=== PATIENT | female | born 2000 | race Caucasian/White ===

== ENCOUNTER → 2019-03-25 12:18 | Outpatient (BNVA) | payer OTHER, SELFPAY | PROVIDERS: Visit Provider Nurse Practitioner | DX: N39.0 Urinary tract infection, site not specified (principal); R10.9 Unspecified abdominal pain | CPT/HCPCS: 81003; 87086 ==

== ENCOUNTER → 2019-03-31 11:00 | Outpatient (BNVA) | payer OTHER, SELFPAY | PROVIDERS: Visit Provider Nurse Practitioner | DX: N39.0 Urinary tract infection, site not specified (principal); R31.9 Hematuria, unspecified; J11.1 Influenza due to unidentified influenza virus with other respiratory manifestations | CPT/HCPCS: 81001; 87804 ==

== ENCOUNTER 2019-07-28 16:45 | Outpatient (CLI) | payer OTHER, SELFPAY ==
--- NOTE | 2019-07-28 17:00 | CTR_ITS ---
PROCEDURE INFORMATION: Exam: CT Abdomen And Pelvis With Contrast Exam date and time: 07/28/2019 5:17 PM Age: 18 years old Clinical indication: Abdominal pain; Additional info: Abd pain TECHNIQUE: Imaging protocol: Computed tomography of the abdomen and pelvis with intravenous contrast. Radiation optimization: All CT scans at this facility use at least one of these dose optimization techniques: automated exposure control; mA and/or kV adjustment per patient size (includes targeted exams where dose is matched to clinical indication); or iterative reconstruction. Contrast material: OMNI 300; Contrast volume: 95 ml; Contrast route: INTRAVENOUS (IV) Other contrast: Oral, OMNI 300, 25; COMPARISON: No relevant prior studies available. FINDINGS: Liver, spleen, pancreas, kidneys, and adrenal glands appear unremarkable. Urinary bladder is nearly collapsed. Appendix is retrocecal. Appendix otherwise appears grossly unremarkable. Bowel loops do not appear significantly dilated. No large amount of free fluid demonstrated. Abdominal aorta does not appear dilated. Visualized lung bases demonstrate no significant opacification. CT/CT abdomen pelvis w con* [id number] IMPRESSION: No acute process is demonstrated. Total DLP (mGy-cm): 1211.91 Radiation Dose CTDIVOL = (mGy): DLP = 1211.91 (mGy-cm)
[2019-07-28] MEDS: iohexol 300 mg/mL 50 mL Btl PO (17:18)
[2019-07-28 17:33] LABS: Basophils % 0.3 %; Eosinophils # 0.3 10^3/uL (0.0-0.8); Eosinophils % 3.4 %; Hematocrit 44.5 % (37.0-47.0); Hemoglobin 14.8 g/dL (11.5-15.3); Lymphocytes # 3.2 10^3/uL (1.5-6.5); Lymphocytes % 32.7 %; Mean Corpuscular HGB Conc 33.3 g/dL (30.0-36.0); Mean Corpuscular Hemoglobin 29.4 pg (28.0-34.0); Mean Corpuscular Volume 88.5 fL (81-99); Mean Platelet Volume 8.5 fL (7.4-10.4); Monocytes # 0.8 10^3/uL (0.2-0.9); Monocytes % 8.6 %; Neutrophils # 5.3 10^3/uL (1.8-8.0); Neutrophils % 54.6 %; Nucleated Red Blood Cells % 0 %; Platelet Count 380 10^3/cmm (130-400); Red Blood Count 5.03 10^6/uL (4.1-5.3); Red Cell Distribution Width 11.4 % (12.1-15.1); White Blood Count 9.8 10^3/uL (4.5-13.0)
[2019-07-28 17:54] LABS: Alanine Aminotransferase 15 U/L (0-33); Albumin Level 4.2 g/dL (3.5-5.2); Alkaline Phosphatase 83 IU/L (35-105); Aspartate Amino Transferase 18 U/L (0-32); Globulin 3.4 g/dL (1.3-4.6); Total Bilirubin 0.2 mg/dL (0.15-1.2); Total Protein 7.6 g/dL (6.6-8.7)
[2019-07-28] MEDS: iohexol 300 mg/mL 100 mL Btl IV (19:13)
== END 2019-07-28 16:46 | disposition home or self-care (01) ==
LOC: RAD 16:51
PROVIDERS: PCP Nurse Practitioner Family; Visit Provider Nurse Practitioner Family
DX: R10.9 Unspecified abdominal pain (principal)
CPT/HCPCS: 74177; 80076; 85025

== ENCOUNTER 2019-07-29 11:44 | Outpatient (CLI) | payer OTHER, SELFPAY ==
--- NOTE | 2019-07-29 11:00 | US_ITS ---
WS: [id number] RIGHT UPPER QUADRANT ULTRASOUND HISTORY: RIGHT upper quadrant pain. COMPARISON: CT abdomen 07/28/2019 Liver: 14.7 cm in length. Normal size and echogenicity with no intrahepatic dilatation. No mass. Gallbladder: Normally distended gallbladder with no stones or wall thickening. CBD: 0.2 cm Pancreas: Normal size and echogenicity. Right kidney: 9.7 cm in length. Normal echogenicity with no mass or hydronephrosis. Aorta and IVC: Unremarkable. No ascites. US/US gall bladder [id number] IMPRESSION: Normal RIGHT upper quadrant ultrasound.
== END 2019-07-29 11:45 | disposition home or self-care (01) ==
LOC: RAD 11:47
PROVIDERS: PCP Nurse Practitioner Family; Visit Provider Nurse Practitioner Family
DX: R10.11 Right upper quadrant pain (principal)
CPT/HCPCS: 76705

== ENCOUNTER 2019-08-12 09:48 | Outpatient (CLI) | payer OTHER, SELFPAY ==
--- NOTE | 2019-08-12 09:58 | NM_ITS ---
WS: [id number] NUCLEAR MEDICINE HIDA SCAN WITH GALLBLADDER EJECTION FRACTION HISTORY: RUQ ABDOMINAL TENDERNESS COMPARISON: Gallbladder ultrasound 07/29/2019 TECHNIQUE: The patient was intravenously injected with 8.1 mCi of TC99m Mebrofenin. Immediate imaging over the right upper quadrant was followed by 5 minute image and additional images for a total of 60 minutes. Normal uptake of radiotracer throughout the liver. Activity identified in the gallbladder at 15 minutes and well distended by 60 minutes. Activity in the proximal small bowel was seen by 60 minutes. Good washout of the radiotracer from the liver by 60 minutes. The patient then drank 8 ounces of Ensure Plus. Ejection fraction at 60 minutes was 63%. Normal GB ej ection fraction is 35-75%. Post fatty meal symptoms: None. NM/NM hepatobiliary w phar* [id number] IMPRESSION: 1. Normal HIDA scan. 2. Normal gallbladder ejection fraction.
== END 2019-08-12 09:49 | disposition home or self-care (01) ==
LOC: RAD 09:49
PROVIDERS: PCP Nurse Practitioner Family; Visit Provider Nurse Practitioner Family
DX: R10.811 Right upper quadrant abdominal tenderness (principal)
CPT/HCPCS: 78227; A9537

== ENCOUNTER → 2019-10-09 10:36 | Outpatient (BNVA) | payer OTHER, SELFPAY | PROVIDERS: PCP Nurse Practitioner Family; Visit Provider Nurse Practitioner Family | DX: R10.9 Unspecified abdominal pain (principal); E55.9 Vitamin D deficiency, unspecified; R53.83 Other fatigue; R63.5 Abnormal weight gain | CPT/HCPCS: 36415; 80053; 80061; 81003; 82306; 83036; 84439; 84443; 84481; 85025 ==

== ENCOUNTER → 2019-12-02 10:26 | Outpatient (BNVA) | payer OTHER, SELFPAY | PROVIDERS: PCP Nurse Practitioner Family; Visit Provider Nurse Practitioner Family | DX: Z01.419 Encounter for gynecological examination (general) (routine) without abnormal findings (principal); R10.9 Unspecified abdominal pain; Z76.89 Persons encountering health services in other specified circumstances; Z12.4 Encounter for screening for malignant neoplasm of cervix; E66.9 Obesity, unspecified | CPT/HCPCS: 87070; 87205; 88175 ==

== ENCOUNTER → 2020-12-15 15:24 | Outpatient (BNVA) | payer OTHER, SELFPAY | PROVIDERS: PCP Nurse Practitioner Family; Visit Provider Nurse Practitioner Family | DX: E66.9 Obesity, unspecified (principal); Z00.00 Encounter for general adult medical examination without abnormal findings; R53.83 Other fatigue; E11.9 Type 2 diabetes mellitus without complications | CPT/HCPCS: 80053; 81000; 81025; 83036; 84443 ==

== ENCOUNTER → 2021-10-20 10:38 | Outpatient (BNVA) | payer SELFPAY | PROVIDERS: PCP Family Medicine; Visit Provider Family Medicine | DX: E11.9 Type 2 diabetes mellitus without complications (principal); Z76.89 Persons encountering health services in other specified circumstances; K52.9 Noninfective gastroenteritis and colitis, unspecified | CPT/HCPCS: 80053; 80061; 83036; 84443; 85025 ==

== ENCOUNTER → 2021-11-23 11:56 | Outpatient (BNVA) | payer SELFPAY | PROVIDERS: PCP Family Medicine; Visit Provider Family Medicine | DX: A09 Infectious gastroenteritis and colitis, unspecified (principal) | CPT/HCPCS: 80053; 85025; 86140 ==

== ENCOUNTER → 2021-11-24 11:35 | Outpatient (BNVA) | payer SELFPAY | PROVIDERS: PCP Family Medicine; Visit Provider Family Medicine | DX: A09 Infectious gastroenteritis and colitis, unspecified (principal) | CPT/HCPCS: 83630; 87177; 87209; 87493; 87506 ==

== ENCOUNTER → 2021-12-13 11:23 | Outpatient (BNVA) | payer MEDICAID, SELFPAY | PROVIDERS: PCP Family Medicine; Visit Provider Surgery | DX: R19.8 Other specified symptoms and signs involving the digestive system and abdomen (principal); R10.9 Unspecified abdominal pain | CPT/HCPCS: 99203 ==

== ENCOUNTER 2022-01-02 06:54 | Day surgery (SDC) | payer MEDICAID, SELFPAY ==
[2021-12-27 09:41] VITALS: BMI 25.6
--- NOTE | 2022-01-02 06:59 | W.PM.OPSUD ---
Surgery/Procedure H&P Update DATE OF PROCEDURE: January 02, 2022 DATE H&P PERFORMED: 12/13/21 PLANNED PROCEDURE: Operation Date: 01/02/22 08:00 Proposed Procedures p 59929 EGD [id number] Colon R19.8,R10.9(Not Applicable) - DO enrico Briggs Colonoscopy(Not Applicable) - Dany Garrett DO
[2022-01-02 07:07] VITALS: BP 103/56; PULSE 75; RESP 18; TEMP 36.3; O2SAT 97
--- NOTE | 2022-01-02 07:13 | ANES.PREANE2 ---
Pre-Anesthetic Assessment Height/Weight: Height 1.57 m Weight 63.503 kg Preop Diagnosis: Abd pain Operation Date: 01/02/22 08:00 Proposed Procedures p 39410 EGD [id number] Colon R19.8,R10.9(Not Applicable) - Dany Garrett DO s Colonoscopy(Not Applicable) - Dany Garrett DO Was Beta Sabiha taken within 24 hours: N/A Was Clonidine taken within 24 hours: N/A Last Intake: 22:00 Social No alcohol and No tobacco Exam alert, oriented x 3, clear to auscultation bilaterally and regular rate & rhythm Airway Submandibular: within normal limits Cervical ROM: within normal limits Mallampati: Class I Dentition: full Pulmonary None reported CV/HEM None reported None reported Hepatic None reported GI None reported Metabolic Diabetes Mellitus (avg 120's) Musc/skel None reported Neuropsych None reported Anesthetic Plan ASA status: 1 Anesthesia: MAC Risk of > 500 ml blood loss (7ml/kg in children): No Medications/Allergies Home Medications Medication Instructions Recorded Confirmed Last Taken Type levonorgestrel 0.15 mg-ethinyl See Rx Instructions .Route 06/22/21 12/27/21 01/01/22 Rx estradiol 30 mcg tablets,3 mos .COMPLEX #91 tabs pack(91) (Greysaloni) semaglutide 0.25 mg or 0.5 mg (2 2 mg (1.6 mL) SUBCUT .Weekly 1 10/20/21 12/27/21 12/21/21 Rx mg/1.5 mL) subcutaneous pen month #6.4 mL injector (Ozempic) Allergies Allergy/AdvReac Type Severity Reaction Status Date / Time sulfamethoxazole Allergy ALGY-Hives Verified 12/13/21 11:31 [From Bactrim] trimethoprim [From Bactrim] Allergy ALGY-Hives Verified 12/13/21 11:31 [facility] Anesthesia Medical History Diabetes Fatigue Vitamin D deficiency Weight gain Surgical History H/O oral surgery Family History Grandmother Cancer breast Other CAD (coronary artery disease) Diabetes Denies family history of Anesthesia complication Bleeding disorder Social History Smoking and tobacco status: never smoked Second hand smoke exposure: No Smoking risk assessment/counseling performed?: No Alcohol intake: never Desire information about alcohol rehabilitation?: No Counseling given: No Desire information about substance/drug rehabilitation?: No Counseling given: No Household members: family Marital status: Single Current occupational status: employed History of recent travel: No Female Reproductive History Date of last menstrual period: 11/24/21 Para: 0 Spontaneous abortions: No Data Anesthesia Cardiac Studies: No Data to Display
[2022-01-02] MEDS: sodium chloride 0.9% 1,000 ML 30 ML IV (07:17)
[2022-01-02 07:34] LABS: Glucose Point of Care 76 mg/dL (70-110)
[2022-01-02 07:46] LABS: OR HCG Qualitative Urine Negative (Negative)
[2022-01-02 08:09] VITALS: BP 105/67; PULSE 89; RESP 16; TEMP 36.1; O2SAT 96
[2022-01-02 08:29] VITALS: BP 93/63; PULSE 82; RESP 16; O2SAT 97
[2022-01-02 08:40] LABS: Glucose Point of Care 78 mg/dL (70-110)
--- NOTE | 2022-01-02 13:49 | ANE.PACU2 ---
Inpatient post-anesthesia follow up: Airway intact: Yes Vital signs: Temperature 97 F Pulse Rate 82 Respiratory Rate 16 Blood Pressure 93/63 Pulse Oximetry 97 Oxygen Delivery Me thod Room Air Oxygen Flow Rate 4 Fraction of Inspir ed Oxygen Hydration adequate: Yes Nausea and vomiting: No Pain level: 1 Mental status: Baseline
== END 2022-01-02 09:00 | disposition home or self-care (01) ==
PROVIDERS: Anesthesiology; PCP Family Medicine; Visit Provider Surgery
PROC: 0DJ08ZZ Inspection of Upper Intestinal Tract, Via Natural or Artificial Opening Endoscopic (ICD-10-PCS; CPT 43235; principal; 2022-01-02 08:00)
PROC: 0DJD8ZZ Inspection of Lower Intestinal Tract, Via Natural or Artificial Opening Endoscopic (ICD-10-PCS; CPT 45378; 2022-01-02 08:00)
DX: R10.32 Left lower quadrant pain (principal); K29.50 Unspecified chronic gastritis without bleeding; B96.81 Helicobacter pylori [H. pylori] as the cause of diseases classified elsewhere; E11.9 Type 2 diabetes mellitus without complications
CPT/HCPCS: 36416; 43239; 45380; 81025; 82274; 82962; 83630; 84703; 87493; 87506; 88305; 88342; J2704; J7030

== ENCOUNTER → 2022-02-07 11:09 | Outpatient (BNVA) | payer MEDICAID, SELFPAY | PROVIDERS: PCP Family Medicine; Visit Provider Family Medicine | DX: R50.9 Fever, unspecified (principal); J01.90 Acute sinusitis, unspecified | CPT/HCPCS: 87400; 87426 ==

== ENCOUNTER → 2022-08-29 14:41 | Outpatient (BNVA) | payer MEDICAID, SELFPAY | PROVIDERS: PCP Family Medicine; Visit Provider Family Medicine | DX: E11.9 Type 2 diabetes mellitus without complications (principal); E55.9 Vitamin D deficiency, unspecified; K52.9 Noninfective gastroenteritis and colitis, unspecified; E83.52 Hypercalcemia | CPT/HCPCS: 80053; 80061; 82306; 83036; 84443; 85025 ==

== ENCOUNTER → 2022-09-06 09:21 | Outpatient (BNVA) | payer MEDICAID, SELFPAY | PROVIDERS: PCP Family Medicine; Visit Provider Family Medicine | DX: E11.9 Type 2 diabetes mellitus without complications (principal); E55.9 Vitamin D deficiency, unspecified; K52.9 Noninfective gastroenteritis and colitis, unspecified | CPT/HCPCS: 82533; 83036; 84439; 84443; 84481 ==

== ENCOUNTER 2022-09-16 15:55 | Outpatient (CLI) | payer MEDICAID, SELFPAY ==
[2022-09-16 19:23] LABS: Sodium, Urine Result 188 mmol/L; Urine Creatinine 241 mg/dL (28-217)
[2022-09-16 19:28] LABS: Total Volume Urine 650 ml; Total Volume, Urine 650 mL
[2022-09-20 14:44] LABS: ALBUMIN 100 %; ALPHA-1-GLOBULINS 0 %; ALPHA-2-GLOBULINS 0 %; BETA GLOBULINS 0 %; CREATININE, 24 HOUR URINE 1.44 g/24 h (0.50-2.15); GAMMA GLOBULINS 0 %; PROTEIN, TOTAL, 24 HR UR 98 mg/24 h (<150); Protein/Creatinine Ratio 0.068 (<0.150); Protein/Creatinine Ratio 68 mg/g creat (<150)
[2022-09-29 08:00] LABS: Free Cortisol Urine 21.4 mcg/24 h (4.0-50.0); Total Urine 650 mL; Urine Creatinine 1.39 g/24 h (0.50-2.15)
== END 2022-09-16 15:56 | disposition home or self-care (01) ==
PROVIDERS: PCP Family Medicine; Visit Provider Family Medicine
DX: Z18.9 Retained foreign body fragments, unspecified material (principal)
CPT/HCPCS: 82530; 82570; 84166; 84300; 86335

== ENCOUNTER → 2024-11-05 15:30 | Outpatient (BNVA) | payer SELFPAY | PROVIDERS: PCP Family Medicine; Visit Provider Family Medicine | DX: R79.89 Other specified abnormal findings of blood chemistry (principal); E11.9 Type 2 diabetes mellitus without complications; E55.9 Vitamin D deficiency, unspecified | CPT/HCPCS: 80053; 82306; 82607; 83036; 84439; 84443 ==